=== PATIENT | female | born 1995 | race Hispanic/Latino ===

== ENCOUNTER 2018-09-27 10:18 | Outpatient (CLI) | payer OTHER ==
--- NOTE | 2018-09-27 12:22 | ULT ---
COMPLETE OB ULTRASOUND AT GREATER THAN FOURTEEN WEEKS: HISTORY: Evaluate anatomy. FINDINGS: A single viable intrauterine fetus, noted in a cephalic presentation. The placenta is posterior. Fe shannan heart rate 156 beats per minute. Amniotic fluid is within normal limits. Cervical length is 3.8 cm. ANATOMY: Visualized brain, four-chamber heart, three-vessel cord, stomach, bladder, kidn eys, spine, and extremity regions are visualized. Very small, echogenic focus in the stomach, nonspe cific. This could represent some focal nodular debris, and at least one prior study did not demonstr ate any significant pathological sequelae. Consider a short-term follow-up study in this regard. BIOMETRY: BPD: 5.2 cm (21 weeks 5 days). HEAD CIRCUMFERENCE: 19.5 cm (21 weeks 6 days). ABDOMINAL CIRCUMFERENCE: 16.4 cm (21 weeks 4 days). FEMUR LENGTH: 3.8 cm (22 weeks 1 day). IMPRESSION: 1. A single viable intrauterine fetus, at 21 weeks 6 days, with estimated date of delivery 9. 2. Estimated weight 447 g (38th percentile). 3. Unremarkable intrauterine fetus. 4. Small, echogenic focus noted within the stomach, nonspecific, but not necessarily pathologic. Co nsider a follow-up examination somewhat later in , for further assessment of this. POS: [facility]
== END 2018-09-27 10:19 | disposition home or self-care (01) ==
LOC: BICULT 10:18
PROVIDERS: ATTEND Family Medicine
DX: O09.892 Supervision of other high risk pregnancies, second trimester (principal); Z3A.21 21 weeks gestation of pregnancy
CPT/HCPCS: 76805

== ENCOUNTER 2019-01-22 13:37 | Emergency (ER) | payer OTHER | END 2019-01-22 15:30 | disposition home or self-care (01) | LOC: ERS 13:37 | DX: O99.353 Diseases of the nervous system complicating pregnancy, third trimester (principal); G51.0 Bell's palsy; Z3A.28 28 weeks gestation of pregnancy | CPT/HCPCS: 99283 ==

== ENCOUNTER 2019-01-31 09:23 | Inpatient (IN) | payer MEDICAID, OTHER, SELFPAY ==
[2019-01-31 10:32] VITALS: BMI 29.2
[2019-01-31] MEDS: Lactated Ringer's 1,000 ML IV SCH ×2 (10:36→11:21)
[2019-01-31 10:52] LABS: Mean Corpuscular HGB CONC 33.9 g/dL (32.0-36.0); Mean Corpuscular Hemoglobin 29.2 pg (27.0-31.0); Mean Corpuscular Volume 86.2 fL (78.0-98.0); Mean Platelet Volume 11.1 fL (7.4-10.4); Platelet Count 147 thou/uL (130-400); RBC Distribution Width 15.2 % (11.5-14.5); Red Blood Cell (RBC) Count 4.12 mill/uL (4.20-5.40); White Blood Cell (WBC) Count 8.4 thou/uL (4.8-10.8)
[2019-01-31] MEDS ORDERED: Promethazine HCl 25 MG/ML VIAL IM PRN ×2 (11:04→16:00)
[2019-01-31] MEDS ORDERED: hydrALAZINE 20 MG/ML VIAL SLOW IVP PRN ×2 (11:04→16:00)
[2019-01-31] MEDS ORDERED: Ondansetron PF 4 MG/2 ML Vial IVP PRN ×2 (11:04→16:00)
[2019-01-31] MEDS ORDERED: Bicitra 30 ML UDCUP PO SCH (11:15)
[2019-01-31] MEDS ORDERED: CEFAZOLIN 2 GM in Premix Bag 1 BAG IVPB SCH (11:15)
[2019-01-31 11:32] LABS: Syphilis Antibody Nonreactive (Nonreactive); Syphilis Antibody Index 0.04 S/CO (<1.00 Non-Reactive)
[2019-01-31 11:33] LABS: Hep B Surf Ag Non-Reactive S/CO (NonReactive)
[2019-01-31] MEDS ORDERED: Oxytocin 10 UNITS/ML VIAL ONE ×2 (11:51→12:41)
[2019-01-31] MEDS ORDERED: MORPHINE 5 MG/10 ML PF VIAL ONE (11:51)
[2019-01-31] MEDS ORDERED: Azithromycin 500 MG in Sodium Chloride 0.9% 250 ML 250 ML IVPB SCH (12:00)
[2019-01-31] MEDS ORDERED: Ondansetron PF 4 MG/2 ML Vial ONE ×2 (12:30→16:44)
[2019-01-31] MEDS ORDERED: Promethazine HCl 25 MG/ML VIAL ONE ×2 (12:33)
[2019-01-31] MEDS ORDERED: Methylergonovine 0.2 MG/ML VIAL ONE (12:34)
[2019-01-31] MEDS ORDERED: Carboprost 250 MCG/ML AMP ONE ×2 (12:37→12:43)
[2019-01-31] MEDS ORDERED: Misoprostol 200 MCG TAB ONE (12:46)
[2019-01-31] MEDS ORDERED: HYDROmorphone 2 MG/ML VIAL SLOW IVP PRN ×2 (13:37→13:38)
[2019-01-31] MEDS ORDERED: L&D-Morphine 4 MG/ML VIAL SLOW IVP PRN ×2 (13:37→13:38)
[2019-01-31] MEDS ORDERED: Ondansetron HCl/PF 4 MG/2 ML Vial IVP PRN ×2 (13:37→13:38)
[2019-01-31] MEDS ORDERED: Meperidine HCl/PF 25 MG/ML VIAL SLOW IVP PRN (13:38)
[2019-01-31] MEDS ORDERED: Ketorolac Tromethamine 30 MG/ML VIAL IVP SCH ×2 (13:45)
[2019-01-31] MEDS ORDERED: Misoprostol 200 MCG TAB PR SCH (16:00)
[2019-01-31] MEDS ORDERED: Lanolin Ointment 7 GM TUBE TOP PRN (16:00)
[2019-01-31] MEDS ORDERED: Bisacodyl 10 MG SUPP PR PRN (16:00)
[2019-01-31] MEDS ORDERED: diphenhydrAMINE 25 MG CAP PO PRN (16:00)
[2019-01-31] MEDS ORDERED: NS / Oxytocin 40 units/1000ml 1,000 ML IV SCH (16:00)
[2019-01-31] MEDS: Ferrous Sulfate 325 MG TAB PO SCH (17:20)
[2019-01-31] MEDS: Ketorolac Tromethamine 30 MG/ML VIAL IVP SCH ×2 (18:15→23:38)
[2019-01-31] MEDS ORDERED: Ferrous Sulfate 325 MG TAB PO SCH (21:00)
[2019-01-31] MEDS: Docusate Calcium (SURFAK) 240 MG CAP PO SCH (22:17)
[2019-01-31] MEDS ORDERED: Loperamide HCl 2 MG CAP PO SCH (23:30)
--- NOTE | 2019-02-01 00:49 | OP ---
DATE OF PROCEDURE: 01/31/2019 PROCEDURE PERFORMED: Repeat low-transverse . PREOPERATIVE DIAGNOSES: 1. Term intrauterine . 2. Prior section. POSTOPERATIVE DIAGNOSES: 1. Term intrauterine , delivered. 2. Prior section 3. Atonic hemorrhage ANESTHESIA: Spinal. INDICATIONS: The patient is a 23-year-old, G3, P1, at 39 weeks gestation who presents for repeat scheduled . DESCRIPTION OF PROCEDURE: After risks, benefits, and alternatives were explained to the patient, she gave informed consent. Preoperative antibiotics included cefazolin 2 g and azithromycin 500 mg. The patient was taken to the operating room and spinal anesthesia was initiated. She was placed in the supine position with the left tilt and prepped and draped in the usual sterile fashion. A Pfannenstiel incision was made with a scalpel and carried down to the level of the fascia, which was sharply nicked. The fascial cut was extended bilaterally with Zambrano scissors. The inferior and superior edges of the cut fascial edges were elevated with Sangita clamps and the underlying rectus muscles were sharply and bluntly dissected free. The recti were divided digitally and sharply and retracted manually. The peritoneum was entered sharply and retracted manually. Bladder blade was placed. A low transverse score was made with a scalpel and the uterus was entered in the midline with the scalpel. Moderate meconium stained amniotic fluid was encountered. The hysterotomy was extended manually. The was noted to be vertex and easily delivered by fundal pressure. Mouth and nares were bulb suctioned. Cord clamped and cut and grossly normal. Male infant was handed to waiting nurse. Cord blood was obtained. The placenta was manually extracted and found to be intact with 3-vessel cord and discarded. The uterus was externalized and the endometrium was curetted with a dry lap. The patient received Methergine x1 and Hemabate x2 in addition to routine Pitocin due to uterine atony.The bladder blade was replaced and the uterus was closed with a running locking 0 Vicryl, followed by a running nonlocking 0 Vicryl imbricating suture. Following this, hemostasis was noted. Following the imbricating suture, hemostasis was noted. Seprafilm was applied. The abdomen was irrigated with saline and suctioned free of clots. The uterus was internalized and the hysterotomy was again noted to be hemostatic. The fascia was closed with a running nonlocking 0 PDS suture. The subcutaneous tissue was irrigated and hemostasis was obtained. Subcutaneous tissue was closed with 3-0 Vicryl. The skin was approximated with roly and pressure dressing was applied. All counts were correct. The patient tolerated the procedure well and was taken to the recovery room in stable condition. 800 mg of Cytotec placed after procedure. QBL: 940 mL. COMPLICATIONS: None. SPECIMEN: Cord blood sent to lab for blood type. FINDINGS: 1. Grossly normal male infant with Apgars of 8 and 9. 2. Two grossly normal placenta with 3 vessel cord discarded. DRAINS: Omalley to gravity draining clear urine. Job ID: [id number] [id number]
[2019-02-01] MEDS: HYDROcodone/Acetaminophen 5/325 mg Tablet PO PRN ×3 (03:24→16:41)
[2019-02-01] MEDS: Simethicone Chewable 80 MG TAB PO PRN (03:26)
[2019-02-01] MEDS: Ibuprofen 800 MG TAB PO SCH ×3 (06:04→21:54)
[2019-02-01 06:32] LABS: Hemoglobin 7.9 g/dL (12.0-16.0); Mean Corpuscular HGB CONC 33.9 g/dL (32.0-36.0); Mean Corpuscular Hemoglobin 29.1 pg (27.0-31.0); Mean Corpuscular Volume 86.1 fL (78.0-98.0); Mean Platelet Volume 9.9 fL (7.4-10.4); Platelet Count 107 thou/uL (130-400); RBC Distribution Width 15.2 % (11.5-14.5); Red Blood Cell (RBC) Count 2.72 mill/uL (4.20-5.40)
[2019-02-01] MEDS: Ferrous Sulfate 325 MG TAB PO SCH ×2 (08:25→16:41)
[2019-02-01] MEDS: Prenatal Vitamin 1 TAB PO SCH (08:25)
[2019-02-01] MEDS: Docusate Calcium (SURFAK) 240 MG CAP PO SCH ×2 (08:25→21:54)
[2019-02-01] MEDS ORDERED: Ibuprofen 800 MG TAB PO SCH (14:00)
[2019-02-02] MEDS: HYDROcodone/Acetaminophen 5/325 mg Tablet PO PRN ×3 (00:02→18:10)
[2019-02-02] MEDS: Ibuprofen 800 MG TAB PO SCH ×3 (06:34→21:18)
[2019-02-02] MEDS: Prenatal Vitamin 1 TAB PO SCH (09:11)
[2019-02-02] MEDS: Docusate Calcium (SURFAK) 240 MG CAP PO SCH ×2 (09:11→21:18)
[2019-02-02] MEDS: Ferrous Sulfate 325 MG TAB PO SCH ×2 (09:11→18:11)
[2019-02-02] MEDS: Simethicone Chewable 80 MG TAB PO PRN (18:11)
[2019-02-03] MEDS: Ibuprofen 800 MG TAB PO SCH ×2 (05:33→14:25)
[2019-02-03 08:01] VITALS: BP 122/75; TEMP 98.5
[2019-02-03] MEDS: Ferrous Sulfate 325 MG TAB PO SCH (09:03)
[2019-02-03] MEDS: Docusate Calcium (SURFAK) 240 MG CAP PO SCH (09:03)
[2019-02-03] MEDS: Prenatal Vitamin 1 TAB PO SCH (09:03)
[2019-02-03] MEDS: HYDROcodone/Acetaminophen 5/325 mg Tablet PO PRN (09:10)
== END 2019-02-03 18:00 | disposition home or self-care (01) | DRG 787 ==
LOC: L&D/OP 09:23 → L&D 11:11 → 3SW 16:28
PROVIDERS: ADMIT Family Medicine; ATTEND Family Medicine
PROC: 10D00Z1 Extraction of Products of Conception, Low, Open Approach (ICD-10-PCS; principal; 2019-01-31)
DX: O34.211 Maternal care for low transverse scar from previous cesarean delivery (principal); O72.1 Other immediate postpartum hemorrhage; Z3A.39 39 weeks gestation of pregnancy; Z37.0 Single live birth
CPT/HCPCS: 36415; 51702; 85027; 86780; 86850; 86900; 86901; 87340; J0456; J0690; J1885; J2210; J2274; J2405; J2550; J2590; J3490; J7050

== ENCOUNTER 2020-11-07 09:11 | Outpatient (CLI) | payer OTHER | END 2020-11-07 09:12 | disposition home or self-care (01) | LOC: BICULT 09:11 | PROVIDERS: ATTEND Family Medicine | DX: O09.892 Supervision of other high risk pregnancies, second trimester (principal); Z3A.20 20 weeks gestation of pregnancy | CPT/HCPCS: 76805 ==